=== PATIENT | male | born 1975 | race Caucasian/White ===

== ENCOUNTER 2018-10-04 23:31 | Emergency (ER) | payer OTHER ==
[2018-10-05] MEDS ORDERED: diphenhydrAMINE 50 MG/ML SDV IVPUSH ONE (00:37)
[2018-10-05] MEDS ORDERED: methylPREDNISolone Sodium Succinate 40 MG/1 ML SDV IVPUSH ONE (00:38)
[2018-10-05] MEDS ORDERED: Ondansetron 4 MG/2 ML SDV IVPUSH ONE (00:59)
--- NOTE | 2018-10-05 09:47 | ER ---
REASON FOR EMERGENCY ROOM VISIT: "Hives." HISTORY OF PRESENT ILLNESS: This 43-year-old man has a history of significant urticaria and possibly angioedema as an adolescent and young man; although, he has not had any problems with this for perhaps 20 years. Approximately 3 hours ago, he noted the onset of typical hives on his forearms, upper arms, chest, back, abdomen, and upper thighs. This was accompanied by intense itching that quickly intensified, and the hives became more numerous and, it sounds like, they became somewhat coalescent. He had some nausea along with this, but no shortness of breath or swelling in his mouth. The pruritus was very intense and, therefore, his brought him in to the emergency department. His episodes of hives as a young man sound a lot suspicious for angioedema with airway compromise, but it did respond promptly, as he recalls, to Benadryl and occasionally steroids. He is not from the area, and he states that he had a fairly extensive workup and no etiology was ever discovered for this. He has not been exposed to any recent medications or animal dander. He denies use of anything unusual or new topically on his skin. He is not taking any nonsteroidal anti-inflammatory drugs. The patient denies any shortness of breath, but he has had some nausea since the onset of his symptoms. He has not had any respiratory symptoms lately nor has he had any fever or chills. He denies any urinary tract symptoms such as hematuria or irritative voiding symptoms. CURRENT MEDICATIONS: His medications were reviewed. Please see electronic medical record. They include Januvia, Lantus insulin, lisinopril, atorvastatin, and omeprazole. PAST MEDICAL HISTORY: 1. He has sleep apnea, for which he has been prescribed a CPAP mask, but he does not use it. 2. Hiatal hernia. 3. Diabetes mellitus type 2 x10 years. 4. Hypertension. 5. Hyperlipidemia. 6. Urticaria, as described above. ALLERGIES: None to medications. REVIEW OF SYSTEMS: All pertinent positives and negatives as listed in the HPI. PHYSICAL EXAMINATION: GENERAL: He is remarkably calm and in no acute distress. VITAL SIGNS: He is afebrile. Respiratory rate is 18, blood pressure is 123/93, O2 saturations 100% on room air, and heart rate is 92. HEENT: Head is normocephalic. No chemosis is noted. No conjunctivitis is noted. TMs are normal. Oropharynx is normal with no evidence of edema. NECK: Supple. There is no adenopathy. No JVD is noted. CHEST: Clear to auscultation with good air exchange bilaterally. No wheezes, rhonchi, or rales. CARDIAC: Regular rate without murmur. ABDOMEN: Soft and nontender. No palpable masses. No hepatosplenomegaly. EXTREMITIES: Normal pulses. No edema. No cyanosis. NEUROLOGIC: He is awake and alert. Moves all 4 extremities very well to commands. SKIN: He has mildly erythematous, raised, diffuse rash with some evidence of excoriation from recent itching over his anterior chest and most of his anterior abdomen. This also involves his upper arms bilaterally, particularly laterally on both sides, and most of his back is virtually covered with confluent urticarial type lesions. The rash itself is not nontender. He has a blotchy, reddish, raised urticarial-type rashes on the upper thighs bilaterally, more so on the inner aspect of both thighs and to a lesser extent the outer aspect. He also has these on his buttocks. By the time the examination was finished, he was already beginning to feel less pruritic and subjectively he felt that the rash was lessening in intensity. COURSE IN THE EMERGENCY ROOM: In light of his past history and the extent of his urticaria, I elected to treat him with 50 mg of Benadryl IV and 40 mg of Solu-Medrol IV as well. Within an hour, this rash had faded substantially and his pruritus was completely gone. He still had mild urticaria present, but it was obviously on the wean. IMPRESSION: Urticaria. No identifiable precipitating factors. PLAN: I told him that he needs to be maintained on some Benadryl 50 mg q.6 hours, and he should take ranitidine. He is familiar with this because he has taken it in the past, 150 mg t.i.d. An alternative to that would be for him to take something like Zyrtec. He does have a primary care provider, and I suggested that he follow up with him. It should be noted that, shortly after he received his IV injection of Benadryl and Solu-Medrol, he had one emesis, it was brownish in color and had no gross blood. Because of this, he was given Zofran 4 mg IV. After a period of observation, he was anxious to go home and felt substantially better. I advised him that should his symptoms return tomorrow or at any time, he should be seen again. I do not think, especially given his diabetes, that we need to start him on a steroid burst or steroid taper. But if this recurs, that may need to be done. All questions were answered. He understands and agrees with this plan. MYLES /[id number]
[2018-10-05] MEDS ORDERED: Ranitidine 15 MG/ML Syrup 10 ML UD Cup PO SCH (21:00)
--- NOTE | 2018-10-06 07:05 | ER ---
REASON FOR EMERGENCY ROOM VISIT: Hives. HISTORY: This 43-year-old man has a history of severe urticaria as a young man and as an adolescent, which sounds like it was more of an angioedema type of situation manifested by swelling in his mouth, eyes, and intense urticarial type rash, etc. The last time he had a severe episode of urticaria was when he was in his 20s. This evening, approximately 3 hours before arriving in the emergency room, he started noticing "hives," which were oval shaped, raised, whitish, and intensely itchy lesions about his chest, upper arms, back, and thighs. These worsened over the next hour or two to the extent that it evolved to the point where it became one large reddened rash. The itching was quite intense. He does occasionally normally gets few hives. This dictation was ended abruptly, but a complete note was subsequently re- dictated. DICTATION ENDS HERE. MYLES /[id number]
== END 2018-10-05 02:02 | disposition home or self-care (01) ==
LOC: JD.ED 23:31
DX: L50.9 Urticaria, unspecified (principal); I10 Essential (primary) hypertension; E11.9 Type 2 diabetes mellitus without complications
CPT/HCPCS: 96374; 96375; 99283; J1200; J2405; J2920

== ENCOUNTER 2019-11-01 18:03 | Emergency (ER) | payer OTHER ==
[2019-11-01] MEDS ORDERED: Sulfamethoxazole/Trimethoprim 800-160 MG Tab PO ONE (18:25)
[2019-11-01] MEDS ORDERED: Lidocaine 1% 10 ML MDV INJECT ONE (18:25)
--- NOTE | 2019-11-01 18:27 | EDM.PDOC ---
ED HPI GENERAL MEDICAL PROBLEM - General Chief Complaint: Skin Complaint Stated Complaint: ABSCESS IN ARMPIT Time Seen by Provider: 11/01/19 18:22 Source of Information: Reports: Patient History Limitations: Reports: No Limitations - History of Present Illness INITIAL COMMENTS - FREE TEXT/NARRATIVE: Patient's unfortunate 44-year-old male who presents emergency Department today with complaint of abscess to left axilla. Patient reports that this started 2 weeks ago and progressively worsened since. Positive pain positive tenderness positive induration patient reports this started draining today and his finally convinced him to come to the emergency department for evaluation. No fever, no chills, no chest pain, no shortness of breath - Related Data Allergies Allergy/AdvReac Type Severity Reaction Status Date / Time No Known Allergies Allergy Verified 11/01/19 18:23 Home Meds: Home Meds Aspirin [Ecotrin] 81 mg PO 10/05/18 [History] Exenatide Microspheres [Bydureon] 10/05/18 [History] Fish Oil/[place]-3 Fatty Acids [Fish Oil] 1 tab PO DAILY 10/05/18 [History] Insulin Glargine,Hum.Rec.Anlog [Lantus Solostar] 1 units SQ DAILY 10/05/18 [ History] Lisinopril 5 mg PO DAILY 10/05/18 [History] Omeprazole 20 mg PO DAILY 10/05/18 [History] SitaGLIPtin [Januvia] 25 mg PO DAILY 10/05/18 [History] atorvaSTATin [Lipitor] 20 mg PO BEDTIME 10/05/18 [History] Sulfamethoxazole/Trimethoprim [Bactrim Ds Tablet] 1 each PO BID #14 tablet 11/01 [Rx] Past Medical History Dermatologic History: Reports: Urticaria Social & Family History - Tobacco Use Smoking Status *Q: Never Smoker Second Hand Smoke Exposure: No - Caffeine Use Caffeine Use: Reports: None - Recreational Drug Use Recreational Drug Use: No ED ROS GENERAL - Review of Systems Review Of Systems: See Below Constitutional: Denies: Fever, Chills Skin: Reports: Other (Abscess) ED EXAM, SKIN/RASH Exam: See Below Exam Limited By: No Limitations General Appearance: Alert, WD/WN, Mild Distress Throat/Mouth: Normal Inspection, Normal Lips, Normal Teeth, Normal Gums, Normal Oropharynx, Normal Voice, No Airway Compromise Head: Atraumatic, Normocephalic Neck: Normal Inspection, Supple, Non-Tender, Full Range of Motion Respiratory/Chest: No Respiratory Distress, Lungs Clear, Normal Breath Sounds, No Accessory Muscle Use, Chest Non-Tender Cardiovascular: Normal Peripheral Pulses, Regular Rate, Rhythm, No Edema, No Gallop, No JVD, No Murmur, No Rub GI/Abdominal: Normal Bowel Sounds, Soft, Non-Tender, No Organomegaly, No Distention, No Abnormal Bruit, No Mass Neurological: Alert, Oriented Skin: Warm, Dry, Other (3 cm diameter abscess to left axilla which is draining purulent drainage positive induration and tenderness mild surrounding erythema) ED SKIN PROCEDURES - Additional/Other Procedure(s) Other (Free Text) Procedure(s): Incision and drainage of abscess: Betadine prep local anesthesia lidocaine 1% 3 mL, wound was incised with #11 blade, large amount of purulent drainage obtained loculations dissected with finger, irrigated wound with NSN Betadine, wound packed with half-inch iodoform gauze, patient tolerated procedure well dressing by nursing Course - Vital Signs Last Recorded V/S: Last Vital Signs Temp 98.3 F 11/01/19 18:21 Pulse 110 H 11/01/19 18:21 Resp 16 11/01/19 18:21 BP 178/110 H 11/01/19 18:21 Pulse Ox 98 11/01/19 18:21 - Orders/Labs/Meds Meds: Medications Discontinued Medications Generic Name Dose Route Start Last Admin Trade Name Zac PRN Reason Stop Dose Admin Lidocaine HCl 10 ml 11/01/19 18:25 11/01/19 18:35 Xylocaine 1% INJECT 11/01/19 18:26 10 ml ONETIME ONE Administration Trimethoprim/Sulfamethoxazole 2 tab 11/01/19 18:25 11/01/19 18:35 Septra Ds PO 11/01/19 18:26 2 tab ONETIME ONE Administration Departure - Departure Time of Disposition: 18:45 Disposition: Home, Self-Care 01 Condition: Good Clinical Impression: Abscess - Discharge Information Prescriptions: Sulfamethoxazole/Trimethoprim [Bactrim Ds Tablet] 1 each PO BID #14 tablet Instructions: Skin Abscess Referrals: PCP,Unknown [Primary Care Provider] - Forms: ED Department Discharge Additional Instructions: Home, rest, keep wound clean and dry, packing out in 24 hours, return as needed for worsening Sepsis Event Note - Evaluation Sepsis Screening Result: No Definite Risk - Focused Exam Vital Signs: Vital Signs Temp Pulse Resp BP Pulse Ox 11/01/19 18:21 98.3 F 110 H 16 178/110 H 98 Date Exam was Performed: 11/01/19 Time Exam was Performed: 18:44
== END 2019-11-01 19:00 | disposition home or self-care (01) ==
LOC: JD.ED 18:03
DX: L02.412 Cutaneous abscess of left axilla (principal); Z79.82 Long term (current) use of aspirin; Z79.4 Long term (current) use of insulin; Z79.899 Other long term (current) drug therapy
CPT/HCPCS: 10061; 99283; A9270; J2001

== ENCOUNTER 2020-02-20 13:40 | Emergency (ER) | payer OTHER ==
--- NOTE | 2020-02-20 14:48 | EDM.PDOC ---
ED HPI GENERAL MEDICAL PROBLEM - General Chief Complaint: Skin Complaint Stated Complaint: RT ARMPIT ABSCESS Time Seen by Provider: 02/20/20 14:43 Source of Information: Reports: Patient History Limitations: Reports: No Limitations - History of Present Illness INITIAL COMMENTS - FREE TEXT/NARRATIVE: 44-year-old male presents the ED with gradually worsening pain swelling and redness in several spots in his right armpit. 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 He is known to be a type II diabetic and states his sugars have been running much higher than he would like over the last 6 months. Current infection seems to have started about a week ago and is just right gradually getting worse. Pain is controlled with Motrin for the most part. He has no systemic signs of illness such as fever chills nausea or vomiting. Onset: Gradual Onset Date: 02/14/20 Duration: Day(s):, Getting Worse Location: Reports: Other (Axilla.) Quality: Reports: Ache, Throbbing Severity: Mild (3 out of 10) Improves with: Reports: Rest Worsens with: Reports: Other Context: Reports: Other (Continuous development of abscesses on the skin). Denies: Activity (Of his arm against his body causes increased pain.), Exercise , Lifting, Sick Contact, Trauma Associated Symptoms: Reports: No Other Symptoms Treatments CERTIFIED MEDICINE AIDE: Reports: Other (see below) (Motrin as needed for pain relief) - Related Data Allergies Allergy/AdvReac Type Severity Reaction Status Date / Time adhesive tape Allergy Hives Verified 02/20/20 14:18 Home Meds: Home Meds Exenatide Microspheres [Bydureon] 1 syringe INJECT WEEKLY 10/05/18 [History] Fish Oil/[place]-3 Fatty Acids [Fish Oil] 1 tab PO DAILY 10/05/18 [History] Insulin Glargine,Hum.Rec.Anlog [Lantus Solostar] 50 units SQ DAILY 10/05/18 [ History] Omeprazole 20 mg PO DAILY 10/05/18 [History] SitaGLIPtin [Januvia] 25 mg PO DAILY 10/05/18 [History] atorvaSTATin [Lipitor] 20 mg PO BEDTIME 10/05/18 [History] Aspirin [Children's Aspirin] 81 mg PO DAILY 02/20/20 [History] Cefdinir [Omnicef] 300 mg PO BID #14 cap 02/20/20 [Rx] Chromium Amino Acid Chelate [Chromium] 600 mcg PO DAILY 02/20/20 [History] Doxycycline [Vibra-Tabs] 100 mg PO BID #56 tablet 02/20/20 [Rx] FLUoxetine [PROzac] 10 mg PO DAILY 02/20/20 [History] Loratadine [Claritin] 50 mg PO DAILY 02/20/20 [History] Losartan [Cozaar] 50 mg PO DAILY 02/20/20 [History] Past Medical History Cardiovascular History: Reports: Heart Murmur, High Cholesterol, Hypertension, Other (See Below) Other Cardiovascular History: tachycardia, intermitten murmur Respiratory History: Reports: Pneumonia, Recurrent, SOB Gastrointestinal History: Reports: Hiatal Hernia Psychiatric History: Reports: Anxiety, Depression Endocrine/Metabolic History: Reports: Diabetes, Type II Dermatologic History: Reports: Urticaria Other Dermatologic History: abscess - Infectious Disease History Infectious Disease History: Reports: C-Difficile, MRSA - Past Surgical History GI Surgical History: Reports: Hernia, Abdominal, Other (See Below) Other GI Surgeries/Procedures: perianal abscess I&D Social & Family History - Family History Family Medical History: Noncontributory - Tobacco Use Smoking Status *Q: Never Smoker Second Hand Smoke Exposure: No - Caffeine Use Caffeine Use: Reports: Coffee - Living Situation & Occupation Living situation: Reports: Occupation: Employed ED ROS GENERAL - Review of Systems Review Of Systems: See Below Constitutional: Reports: Weight Gain (With his current medic treatment.). Denies: Fever, Chills, Malaise, Weakness, Fatigue HEENT: Reports: No Symptoms Respiratory: Reports: No Symptoms Cardiovascular: Reports: No Symptoms Endocrine: Reports: High Glucose GI/Abdominal: Reports: Other : Reports: Frequency Musculoskeletal: Reports: No Symptoms Skin: Reports: Other Neurological: Reports: No Symptoms (Development of skin inflammation abscess formation right axilla over the last week) Psychiatric: Reports: No Symptoms Hematologic/Lymphatic: Reports: No Symptoms Immunologic: Reports: No Symptoms ED EXAM, SKIN/RASH Exam: See Below Exam Limited By: No Limitations General Appearance: Alert, WD/WN, No Apparent Distress, Other (Temperature is 36.3 with a heart rate of 96. BP elevated 179 101 respiratory to 16 pulse ox 95 % room air.) Eye Exam: Bilateral Eye: Normal Inspection, PERRL Respiratory/Chest: No Respiratory Distress, Lungs Clear, Normal Breath Sounds, No Accessory Muscle Use, Chest Non-Tender Cardiovascular: Normal Peripheral Pulses, Regular Rate, Rhythm, No Edema, No Gallop, No Murmur, No Rub Extremities: Other (Examination of the left axilla shows a well-healed curvilinear scar from previous incision and drainage of an abscess in October of this year. Inspection of the right axilla shows 3 separate erythematous areas. The 2 that are most lateral are macular and measure 1 to 1.5 cm in length and less than a centimeter in width. The largest abscess is 3 cm in length and 1.5 cm in width is and is in the anterior superior aspect of the axilla. Ultrasound reveals less than a male of fluid within the abscess.) Neurological: Alert, Oriented, CN II-XII Intact, Normal Cognition Psychiatric: Normal Affect, Normal Mood Skin: Warm, Dry, Erythema (Abscess abscess formation right axilla x3 separate areas) Location, Skin: Axillary (Right axilla) Characteristics: Macular, Maculopapular Course - Vital Signs Last Recorded V/S: Last Vital Signs Temp 36.3 C 02/20/20 14:19 Pulse 96 02/20/20 14:19 Resp 16 02/20/20 14:19 BP 179/101 H 02/20/20 14: Pulse Ox 95 02/20/20 14:19 - Radiology Interpretation Free Text/Narrative:: 44-year-old male with insulin-dependent diabetes type 2. Presents to the ED with recurrent abscess formation in the right axilla. This been brewing over the last week. There are seen 3 separate areas of erythema the 2 that are most posterior and inferior are macular and 1 cm to 1.5 cm in length and are not fluctuant. The superior anterior abscess is approximately 3 cm in length and 1 cm in width. Ultrasound reveals however there is less than a mill of purulent material in the wound. It is only slightly fluctuant. I therefore did not feel that incision and drainage would be necessary at this time. The treatment will be antibiotics. He will continue Motrin 600 mg every 6 hours needed for pain relief and it does not seem to be bothering him all that much. Placed on Omnicef 300 mg twice daily for 7 days which would kill normal staph aureus. He will also be placed on doxycycline 100 mg twice daily for 14 days to kill MRSA. I have given him an extra 14-day supply of doxycycline that he can start at the onset of next signs of infection as this is a recurrent problem. Return if the abscess enlarges drains or he develops systemic signs of infection such as fever chills nausea vomiting etc. Departure - Departure Time of Disposition: 14:44 Disposition: Home, Self-Care 01 Condition: Fair Clinical Impression: Pyogenic skin abscess due to bacteria - Discharge Information *PRESCRIPTION DRUG MONITORING PROGRAM REVIEWED*: Not Applicable *COPY OF PRESCRIPTION DRUG MONITORING REPORT IN PATIENT YU: Not Applicable Prescriptions: Cefdinir [Omnicef] 300 mg PO BID #14 cap Doxycycline [Vibra-Tabs] 100 mg PO BID #56 tablet Instructions: Skin Abscess, [id number], Antibiotic Medicine, Adult Referrals: Daniele Champagne PA-C [Primary Care Provider] - Forms: ED Department Discharge Additional Instructions: Evaluation in the emergency room today in regards to development of skin abscesses in the right armpit. You have had several bouts of abscesses in various parts of your body associated with diabetes. The largest abscess or today by ultrasound shows only about 1 meal of fluid within it and it was felt that it would likely respond well to antibiotics without need for incision and drainage at this time. Continue Motrin 600 mg every 6 hours as needed for pain relief. Antibiotics are to be Omnicef 300 mg twice daily for the next 7 days to clear up infection with second antibiotic doxycycline 100 mg twice daily for the next 14 days to clear up infection and cover for pathology potential methicillin-resistant staph aureus infection. He will have an extra 14 days of doxycycline medication with this prescription that can be started as soon as you notice abscess development in the future. Last for good couple of years. Turn to the ED if the area becomes more swollen or you develop any fever chills in the next 48 hours. Is expect gradual improvement over the next 48 to 72 hours with decreased pain redness and swelling. Sepsis Event Note - Evaluation Sepsis Screening Result: No Definite Risk - Focused Exam Vital Signs: Vital Signs Temp Pulse Resp BP Pulse Ox 02/20/20 14:19 36.3 C 96 16 179/101 H 95 Date Exam was Performed: 02/20/20 Time Exam was Performed: 14:49
== END 2020-02-20 14:56 | disposition home or self-care (01) ==
LOC: JD.ED 13:40
DX: L02.411 Cutaneous abscess of right axilla (principal); A49.9 Bacterial infection, unspecified; E78.00 Pure hypercholesterolemia, unspecified; I10 Essential (primary) hypertension; F41.9 Anxiety disorder, unspecified; F32.9 Major depressive disorder, single episode, unspecified; E11.9 Type 2 diabetes mellitus without complications; Z88.8 Allergy status to other drugs, medicaments and biological substances; Z79.4 Long term (current) use of insulin; Z79.899 Other long term (current) drug therapy; Z79.82 Long term (current) use of aspirin
CPT/HCPCS: 99283